=== PATIENT | male | born 1980 | race Caucasian/White ===

== ENCOUNTER 2019-09-27 08:07 | Emergency (ER) | payer OTHER, SELFPAY ==
--- NOTE | 2019-09-27 08:17 | ED.EAR ---
HPI - Ear Problem General Chief complaint: Ear Stated complaint: RT EAR INF Time Seen by Provider: 09/27/19 08:19 Source: patient and RN notes reviewed Mode of arrival: ambulatory Limitations: no limitations History of Present Illness HPI Narrative: 38 year old male presents to [facility] with complaints of right ear discomfort with hearing feeling muffled since Saturday afternoon. Patient states that he had a sore throat a week ago but that has resolved. Patient denies any feelings of sinus congestion or sinus drainage, denies any acute fever, chills or sweats. He states that he has taken some Ibuprofen for his discomfort. Patient does admit to tobacco abuse of 1/2 ppd of cigarettes for the past 15 years. MD Complaint: ear pain Location: right ear Duration: constant Severity: mild Relieving factors: nothing Exacerbating factors: nothing Context: Reports recent illness (sore throat one week ago) Discharge from ear: Reports no Associated symptoms ear: decreased hearing Treatment prior to arrival: other (Ibuprofen) Related Data Allergies Allergy/AdvReac Type Severity Reaction Status Date / Time nystatin Allergy Hives Verified 09/27/19 08:26 Review of Systems Review of Systems: Narrative: CONSTITUTIONAL: Denies fever, chills, or sweats. EYES: Denies visual changes, redness, or discharge. ENT: Denies rhinorrhea, congestion,previous sore throat one week ago, right ear otalgia. CARDIOVASCULAR: Denies chest pain, palpitations, or edema. RESPIRATORY: Denies cough or dyspnea. GASTROINTESTINAL: Denies abdominal pain, nausea, vomiting, or diarrhea. GENITOURINARY: Denies dysuria or hematuria. SKIN: Denies rash or itching. MUSCULOSKELETAL: Denies back pain, joint pain, or myalgia. NEUROLOGIC: Denies headache, numbness, or weakness. PSYCHIATRIC: Denies anxiety or depression. All systems reviewed & are unremarkable except as noted in HPI and below [facility] Past Medical History Medical History (Updated 09/27/19 @ 08:40 by Molly Montes De Oca NP) Swimmers' ear Social History Social History (Updated 09/27/19 @ 08:40 by Molly Montes De Oca NP) Smoking packs per day: 0.5 Smoking cigarettes per day: 10.0 Years smoked: 15 Smoking pack-years: 7.50 Smoking status: Current every day smoker Living arrangements: with family Gender identity (if verbalized by the patient): Male Comments At time of signature, agree with nursing past medical, social history. There is no relevant family history pertinent to the presenting complaint Exam Narrative: Exam Narrative: GENERAL: Well-appearing, well-nourished, and in no acute distress. HEAD: Normocephalic, atraumatic. EYES: PERRLA and EOMI. ENT: Nares clear, some clear rhinorrhea no epistaxis. Mucous membranes moist.TM right red and bulging with dull light reflex, left TM normal with good light reflex, Throat mildly red, uvula red, no tonsil enlargement NECK: Supple.no lymphadenopathy CHEST: Clear to auscultation. No respiratory distress.SAO2 99% on room air HEART: Regular rate and rhythm. No murmur heard. Normal peripheral pulses. ABDOMEN: Soft, nontender, nondistended, normal active bowel sounds. EXTREMITIES: Normal range of motion. No edema. SKIN: Warm, dry, no rash. NEURO: No focal deficits. Alert and oriented x3. Medical Decision Making Differential Diagnosis Differential Diagnosis: URI, otitis media, pharyngitis, viral infection Medical Records Medical records reviewed: Yes I reviewed the patient's medical records. Critical Care Time Critical Care Time Critical Care Time: No Discharge Plan Discharge Clinical Impression: Otitis media Qualifiers: Otitis media type: serous Chronicity: acute Laterality: right Recurrence: non-recurrent Qualified Code(s): H65.01 - Acute serous otitis media, right ear Patient Disposition: Home, Self-Care Condition: Stable Instructions: Antibiotic Form, Otitis Media (ED) Additional Instructions: Increase fluids especially juices and water
[2019-09-27 08:18] VITALS: BP 136/67; PULSE 108; RESP 20; TEMP 37.4; O2SAT 99
== END 2019-09-27 08:32 | disposition home or self-care (01) ==
PROVIDERS: Emergency Provider Registered Nurse; PCP Internal Medicine
DX: H65.01 Acute serous otitis media, right ear (principal); F17.210 Nicotine dependence, cigarettes, uncomplicated
CPT/HCPCS: 99203; G0463